=== PATIENT | female | born 1930 | race Caucasian/White ===

== ENCOUNTER 2016-10-13 10:40 | Inpatient (IN) | payer MEDICARE ==
[2016-10-13] MEDS ORDERED: Aspirin Low Dose CHEW TAB* 81 MG PO ONE (10:45)
--- NOTE | 2016-10-13 11:22 | RAD ---
HISTORY: Chest pain COMPARISONS: December 31, 2013 VIEWS:1: Single frontal portable view of the chest at 10:55 AM FINDINGS: LINES AND TUBES: None. CARDIOMEDIASTINAL SILHOUETTE: The cardiomediastinal silhouette is normal for portable technique. PLEURA: The costophrenic angles are sharp. No pleural abnormalities are noted. LUNG PARENCHYMA: There is a pleural-based nodule of the left lower lung measuring 1.3 cm in size. This is not clearly seen on the previous examination ABDOMEN: The upper abdomen is clear. There is no subphrenic gas. BONES AND SOFT TISSUES: The patient is status post internal fixation of the right femur IMPRESSION: PLEURAL-BASED NODULE OF THE LEFT LOWER LUNG. RECOMMEND FURTHER EVALUATION WITH CONTRAST-ENHANCED CT OF THE CHEST
[2016-10-13 11:47] LABS: Hematocrit 45 % (35-47); Hemoglobin 14.2 g/dl (12.0-16.0); Mean Corpuscular HGB Conc 32 g/dl (31-36); Mean Corpuscular Hemoglobin 28 pg (27-31); Mean Corpuscular Volume 88 fL (80-97); Mean Platelet Volume 10 um3 (7.4-10.4); Red Blood Count 5.12 10^6/ul (4.0-5.4); Red Cell Distribution Width 18 % (10.5-15); White Blood Count 7.9 10^3/ul (3.5-10.8)
[2016-10-13 12:00] LABS: Albumin 3.4 g/dL (3.2-5.2); BUN/Creatinine Ratio 10.1 (8-20); Calcium 9.6 mg/dL (8.6-10.3); EGFR African American 55.3 (>60); Globulin 3.8 g/dL (2-4); Potassium 3.1 mmol/L (3.5-5.0); Total Bilirubin 0.5 mg/dL (0.2-1.0); Total Protein 7.2 g/dL (6.4-8.9)
[2016-10-13 12:08] LABS: Troponin I 0.05 ng/mL (<0.04)
[2016-10-13] MEDS ORDERED: Ondansetron INJ* 2 MG/ML VIAL IV ONE (12:09)
[2016-10-13] MEDS ORDERED: Amiodarone IV VIAL* 3 ML ONE (13:05)
[2016-10-13] MEDS ORDERED: Amiodarone 360 MG IVPREMIX* 360 MG/200 ML BAG IV ONE (13:10)
[2016-10-13] MEDS ORDERED: Amiodarone 360 MG IVPREMIX* 360 MG/200 ML BAG IV SCH (13:10)
[2016-10-13] MEDS ORDERED: Amiodarone 150 MG IVPREMIX* 150 MG/100 ML BAG IV ONE (13:23)
[2016-10-13] MEDS ORDERED: KCL 20 MEQ/100 ML IVPREMIX* 20 MEQ/100 ML BAG ONE (13:32)
[2016-10-13] MEDS ORDERED: Potassium Chlor TAB* 20 MEQ TAB.ER PO ONE (13:42)
[2016-10-13] MEDS ORDERED: NS 0.9% 1000 ML* 1,000 ML IV SCH (13:45)
[2016-10-13] MEDS ORDERED: Albuterol 2.5 MG/3 ML NEB.SOL* (0.083%) INH PRN (13:51)
[2016-10-13] MEDS ORDERED: HYDROcodone/ACETAMIN 5-325 MG* 1 TAB PO PRN (13:51)
[2016-10-13 14:02] LABS: Magnesium 1.8 mg/dL (1.9-2.7)
[2016-10-13] MEDS ORDERED: Magnesium Sulfate 2 GM IV* 2 GM/50 ML BAG IVPB ONE (14:06)
[2016-10-13 14:15] LABS: T4 10.89 g/dL (6.09-12.23)
[2016-10-13 14:17] LABS: TSH (Thyroid Stimulating Horm) 10.81 mcIU/mL (0.34-5.60)
[2016-10-13 14:20] LABS: Free T3 3.4 pg/mL (2.5-3.9)
[2016-10-13 14:21] LABS: Free T4 0.98 ng/dL (0.61-1.12)
[2016-10-13 14:25] LABS: Total T3 0.84 ng/mL (0.87-1.78)
[2016-10-13] MEDS: KCL 20 MEQ/100 ML IVPREMIX* 20 MEQ/100 ML BAG IV SCH ×3 (15:22→19:32)
--- NOTE | 2016-10-13 15:31 | ECHO ---
Patient: TIFFANY MEDELLIN [facility] Rec#: [id number] : 1930 Date: 10/13/2016 Age: 85y Height: 160.02 cm / 63.0 in Weight: 58.97 kg / 130.0 lbs Sex: F BSA: 1.61 Room#: -19 Admit Date#: 10/13/2016 Type: Inpatient Referring: Tracey Haile MD Reading: Baltazar Langford MD Warehouse Material Handler: Luz Elena Pena [facility] CC: Broderick Holguin MD Transthoracic Echocardiogram Indication: CP/Abn EKG BP: 91/54 HR: 112 Rhythm: NSR with PVCs Findings History: S/P pericardial window 07/2016,CVA 8 yrs ago,HTN,HLD,remote smoker. Run of VT just prior to echo. Technical Comments: The study was technically limited due to the patient's inability to lay in the left lateral decubitus position. Completed at 1340. Left Ventricle: The left ventricular chamber size is normal. Septal wall hypertrophy is observed. Septal knuckle measured 2.3cm. Global left ventricular wall motion and contractility are within normal limits. There is normal left ventricular systolic function. The estimated ejection fraction is 60-65%. There is no consistent Doppler evidence of clinically significant diastolic dysfunction. Right Ventricle: The right ventricular cavity size is normal. The right ventricular global systolic function is normal. Right Atrium: The right atrial cavity size is normal. Aortic Valve: The aortic valve is trileaflet. There is no evidence of aortic regurgitation. There is no evidence of aortic stenosis. Mitral Valve: The mitral valve leaflets appear normal. There is moderate mitral regurgitation. There is no evidence of mitral stenosis. Tricuspid Valve: The tricuspid valve leaflets are normal. There is moderate tricuspid regurgitation. There is evidence of borderline pulmonary hypertension. There is no tricuspid stenosis. Pulmonic Valve: The pulmonic valve appears normal. There is a trace pulmonic regurgitation. There is no pulmonic stenosis. Pericardium: There is no pericardial effusion. A pericardial fat pad is visualized. Aorta: There is mild dilatation of the ascending aorta. There is mild dilatation of the aortic root. Pulmonary Artery: The main pulmonary artery appears normal. Venous: The venous system is not well visualized. Conclusions Septal wall hypertrophy is observed. Septal knuckle measured 2.3cm. Global left ventricular wall motion and contractility are within normal limits. There is normal left ventricular systolic function. The estimated ejection fraction is 60-65%. The right ventricular global systolic function is normal. There is no evidence of aortic regurgitation. There is moderate mitral regurgitation. There is moderate tricuspid regurgitation. There is evidence of borderline pulmonary hypertension. There is a trace pulmonic regurgitation. There is no pericardial effusion. There is mild dilatation of the ascending aorta. Measurements Name Value Normal Range RVIDd (AP) 2D 3 cm (0.9 - 2.6) RVDdMajor (2D) 3.6 cm (2.2 - 4.4) RAd ISD 4CH 4.6 cm (3.4 - 4.9) RA (A4C)W 3 cm (2.9 - 4.6) IVSd (2D) 0.9 cm (0.6 - 1) LVPWd (2D) 1.1 cm (0.6 - 1) LVIDd (2D) 4.5 cm (3.6 - 5.4) LVIDs (2D) 2.6 cm - LV FS (2D) 42 % (25 - 45) Aortic Annulus 2 cm (1.4 - 2.6) Ao root diameter (2D) 3.8 cm (2.1 - 3.5) Ascending Ao 3.5 cm (2.1 - 3.4) LA dimension (AP) 2D 4.1 cm (2.3 - 3.8) LAd ISD 4CH 4.8 cm (2.9 - 5.3) LA ISD 4CH W 4.4 cm (2.5 - 4.5) Name Value Normal Range LA ESV SP 4CH (A/L) 44 ml - LA ESV SP 2CH (A/L) 33 ml - LA ESV BP (A/L) 40 ml - LA ESV BP (A/L) index 24.17 ml/m2 - LA ESV SP 4CH (MOD) 41 ml - LA ESV SP 2CH (MOD) 31 ml - Name Value Normal Range MV E-wave Vmax 1.1 m/sec - MV deceleration time 125 msec - Name Value Normal Range AV Vmax 1.1 m/sec - AV VTI 18.5 cm - AV peak gradient 4.45 mmHg - AV mean gradient 1.92 mmHg - LVOT Vmax 0.8 m/sec - LVOT VTI 14.4 cm - LVOT peak gradient 2.71 mmHg - LVOT mean gradient 1.17 mmHg - Name Value Normal Range TR Vmax 2.8 m/sec - TR peak gradient 31 mmHg - RAP 8 mmHg - RVSP 39 mmHg - Name Value Normal Range PV Vmax 0.7 m/sec - PV peak gradient 1.89 mmHg -
[2016-10-13 18:53] LABS: Urine Bacteria Absent (Absent); Urine Bilirubin Negative (Negative); Urine Glucose Negative (Negative); Urine Nitrite Positive (Negative)
[2016-10-13] MEDS: Amiodarone 360 MG IVPREMIX* 360 MG/200 ML BAG IV SCH (20:06)
[2016-10-13] MEDS ORDERED: Ferrous Gluconate TAB* 324 MG TAB PO SCH ×2 (21:00→21:19)
[2016-10-13] MEDS: levETIRAcetam TAB* 500 MG PO SCH (21:22)
[2016-10-13] MEDS: Colchicine* 0.6 MG TAB PO SCH (21:22)
[2016-10-13] MEDS: Apixaban* 2.5 MG TAB PO SCH (21:22)
[2016-10-13] MEDS: Ferrous Gluconate TAB* 324 MG TAB PO SCH (21:23)
[2016-10-14 03:46] LABS: Hematocrit 37 % (35-47); Hemoglobin 11.8 g/dl (12.0-16.0); Mean Corpuscular HGB Conc 32 g/dl (31-36); Mean Corpuscular Hemoglobin 28 pg (27-31); Mean Corpuscular Volume 88 fL (80-97); Mean Platelet Volume 10 um3 (7.4-10.4); Red Blood Count 4.26 10^6/ul (4.0-5.4); Red Cell Distribution Width 17 % (10.5-15); White Blood Count 5.6 10^3/ul (3.5-10.8)
[2016-10-14 04:02] LABS: BUN/Creatinine Ratio 11.3 (8-20); Calcium 8.5 mg/dL (8.6-10.3); EGFR African American 87.5 (>60); Potassium 4.4 mmol/L (3.5-5.0)
[2016-10-14 04:21] LABS: Troponin I 0.12 ng/mL (<0.04)
[2016-10-14] MEDS: Levothyroxine TAB* 25 MCG TAB PO SCH ×2 (04:56→10:07)
--- NOTE | 2016-10-14 06:39 | HP ---
HISTORY AND PHYSICAL: DATE OF ADMISSION: 10/13/16 PRIMARY CARE PHYSICIAN: Dr. Berry. ATTENDING PHYSICIAN WHILE IN THE HOSPITAL: Ty Almaguer MD *(report dictated by Miguel Ram NP) CONSULTING THERAPY TEACHER: Dr. Langford. CHIEF COMPLAINT: 1. Chest discomfort. 2. Nausea with vomiting. 3. Irregular heartbeat. HISTORY OF PRESENT ILLNESS: Mrs. Dey is an 85-year-old female patient who comes into the ER today with an underlying history of dementia, so it is hard to get a good history from her, but she does state that she remembers having some chest discomfort today. She thinks this only lasted a minute or two. She did have some nausea and she appeared to be more short of breath according to the nursing notes. She has a history of hypertension, AFib, which she thinks is paroxysmal but her son states that to his knowledge, she goes in and out of this. She has had a cardioversion in the past. She has a history of pericardial effusion recently about 4 to 5 weeks ago as [facility] status post window, history of seizure, hyperlipidemia, anemia, CVA, history of CHF and history of breast cancer and mild dementia. She was at the skilled nursing today, was feeling a little bit more weak. She appeared to be a little more short of breath per the nursing notes. They were concerned and sent her to the hospital. It was also noted that her heart rate was irregular. The patient was evaluated in the ER. It was noted that when she came in, she appeared to be in atrial fibrillation, heart rate in the 100s, she was a little bit more hypoxic. She was requiring a couple of liters of oxygen, O2 sats were 90%. In addition to this, she was noted to be hypotensive in the 90s. Hospitalist service was asked to evaluate for admission. There was obvious concern that she may have reaccumulation of fluid, an echo was done. Fluid was not seen, but whilst getting the echo she went into V-tach with a rate of 200 and she did convert after amiodarone and because of this, we were asked to evaluate. There has been no recent documented again fever or change in medications over the last 4 weeks since being at [facility]. PAST MEDICAL HISTORY: Significant for: 1. Hypertension. 2. AFib. 3. Pericardial effusion. 4. Seizure. 5. Hyperlipidemia. 6. Anemia. 7. CHF. 8. CVA. 9. Breast cancer. 10. Dementia. PAST SURGICAL HISTORY: 1. She has had a hysterectomy. 2. Pericardial window with right-sided chest tube according to the notes. HOME MEDICATIONS: Include: 1. Fenton 1 tablet every 4 hours as needed for pain. 2. Promethazine 25 mg every 8 hours as needed for vomiting. 3. Albuterol 1 neb every 4 hours as needed for shortness of breath or wheezing. 4. Flonase 1 spray each nostril as needed for allergies. 5. Imodium every 4 hours as needed for diarrhea. 6. Pyridium 100 mg 3 times a day. 7. Keppra 500 mg p.o. twice a day. 8. Senna 1 tablet b.i.d. 9. Eliquis 2.5 mg p.o. b.i.d. 10. Ferrous gluconate 324 mg p.o. b.i.d. 11. Flonase 1 spray each nostril 2 times a day. 12. B12 IM every 14 days. 13. Colace 100 mg p.o. b.i.d. 14. Colchicine 0.6 mg by mouth 2 times a day for gout. 15. B12 at 1000 mcg p.o. daily. 16. Vitamin C 500 mg daily. 17. Vitamin D3 at 1000 units p.o. daily. 18. Pravachol 20 mg daily. 19. Senna 2 tablets at bedtime. 20. Folic acid 1 tablet p.o. daily. 21. Humira 2.5 mg daily. 22. Synthroid 25 mcg daily. 23. Magnesium 400 mg by mouth daily. ALLERGIES TO MEDICATIONS: Include no known drug allergies. FAMILY HISTORY: Mother has history of pneumonia. Father had history of CO. SOCIAL HISTORY: She lives at [facility] currently. She is a nonsmoker. Surrogate decision maker is her son. REVIEW OF SYSTEMS: There is no documented fever. She denied having any significant weight change. There was no double vision. There is no ear discharge. There is no rhinorrhea. There is no sore throat. No thyroid enlargement. She did admit to chest pain earlier today but it is now gone. She admits to having one episode of nausea with vomiting. There was a report of diarrhea. There is no abdominal pain. No recent antibiotics. No dysuria. No frequency. There is no report of loss of consciousness or seizure activity. Review of 14 systems completed, all others were negative. PHYSICAL EXAMINATION GENERAL: At this time, Ms. Dey is an 85-year-old female patient. She is sitting in the ER stretcher. She does not appear to be in any acute distress. VITAL SIGNS: Reveal blood pressure 91/54, pulse 115, respirations 18, O2 sat 95 %, temperature 98.8. Her blood pressure now is 121/70, heart rate is at 90. HEENT: Head: Atraumatic, normocephalic. Eyes: EOMs are intact. Sclerae anicteric and not pale. Throat: Oral mucosa appears to be dry. No oropharyngeal erythema. NECK: Supple. LUNGS: Clear to auscultation bilaterally. No wheezes, rales, or rhonchi. HEART: Sounds S1, S2. Irregularly irregular rate. No murmurs, rubs, or gallops. ABDOMEN: Soft, flat, nontender. Bowel sounds were present. EXTREMITIES: Pulses are 2+ throughout. She is able to move all 4 extremities with 5/5 strength. NEUROLOGIC: The patient is awake, alert, she is oriented x3 currently, but she has short-term memory problems. No gross focal deficits. She does have some weakness on the right side but that is her baseline. SKIN: Intact. LABORATORY DATA: Today revealed WBC 7.9, RBC of 5.12, hemoglobin 14.2, hematocrit 45, platelet count of 265. Sodium was 127, potassium 2.1, chloride 102, bicarb 23, BUN 12, creatinine 1.19, glucose 167, lactic 3.0, calcium 9.6, mag 1.8. Total bili 0.5, AST 20, ALT 15, alk phos 68, troponin 0.05, albumin 3.4. TSH is pending. She had an EKG obtained in the ED, which did show atrial fibrillation with couplets. No ST elevation. She had some left bundle branch block was noted as well. She had a previous EKG, again this is from 3 years ago, showed a normal sinus rhythm, no ST elevation or T-wave inversions. Her QT from 3 years ago was 451, her QT today is 371 with QTc's 518, prior was 468. She did have a chest x-ray obtained today, on my review she does appear to have what appears to be a left-sided pleural effusion. Radiology read impression: Pleural based nodule in the left lower lung. Recommend further evaluation with CT of the chest. Old medical records were reviewed. ASSESSMENT AND PLAN: Mrs. Dey is an 85-year-old female patient coming into the ER today with complaints of chest pain, nausea, weakness and on evaluation here in the ED found to be in atrial fibrillation. In addition to this, did have an episode of ventricular tachycardia. She will be admitted under inpatient status for: 1. Chest discomfort with associated ventricular tachycardia. Again, she did have one episode of chest pain lasting minutes she thinks, no more discomfort now. Her troponin is mildly elevated and she did have an episode of ventricular tachycardia. Her QTc is prolonged, which is concerning. I did review the meds with Dr. Langford. We do not see any obvious medication that may be contributing to this. Her potassium as well in addition to this her mag was a little low. The plan at this point is to cycle her troponins. She did get an echo. She is not having any discomfort now. We will continue her on amiodarone, as when she was in the V-tach, she was bolused with 300 mg of amiodarone IV and she broke into atrial fibrillation with PVC's and she is being maintained on a drip. She recently was started on amiodarone after the hospitalization at [facility], which certainly could prolong the QTc. At this point we will rule her out with troponins, try to get her potassium around 4, get the mag up around 2. I think the troponin could be elevated because of demand ischemia. I think probably what happened is she probably went into atrial fibrillation with rapid ventricular response and does not tolerate this well and that is why we are seeing the symptomatology that she was complaining of earlier, but I would like to rule out acute coronary syndrome obviously. Cardiology is following closely. May consider cardioversion tomorrow. We need to get records from [facility], [place], and also Dr. Yuan's office to get a more recent EKG as well. 2. History of reported diarrhea. Again, she recently looks like from her MAR, has been started on some colchicine just a few weeks ago, it looks like on the 01 of September, 6 weeks ago, which may be contributing but I am going to send off for stool studies and C. Diff. I do not see any recent antibiotics on her old MAR. We will send off for cultures and C. diff and we will follow. 3. Hypertension. Blood pressure now is in the 120s. We will just continue her meds as prescribed. 4. Atrial fibrillation. Again, she is rate controlled on amiodarone. She is on Eliquis. We could consider cardioversion tomorrow with Dr. Langford following. 5. Pericardial effusion. Echo by verbal report, did not see a large pericardial effusion. I will continue to follow. 6. Seizure. Seizure precautions will be ordered. We will go ahead and continue her Keppra. 7. Hyperlipidemia. Continue her medications as prescribed. 8. History of cerebrovascular accident. Continue with secondary prevention. 9. History of congestive heart failure. We will monitor her fluid status and diurese as needed. 10. Breast carcinoma. Continue meds as prescribed. 11. Dementia. Continue with supportive care. 12. Code status: She wishes to be a DNR. 13. Fluids, electrolytes, and nutrition: She can have a regular diet. TIME SPENT: Time spent on this admission was 70 minutes, greater than half the time was spent [id number] with the patient obtaining my history and physical, and the other half time was spent going over the plan of care with patient and implementing plan of care. I did discuss the plan of care with my attending, Dr. Almaguer, he is in agreement. MIGUEL RAM NP CC: Dr. Berry; Dr. Langford * [id number]/[facility] #: [id number] [facility]
[2016-10-14] MEDS: Amiodarone 360 MG IVPREMIX* 360 MG/200 ML BAG IV SCH (07:02)
[2016-10-14 09:08] LABS: Magnesium 2.1 mg/dL (1.9-2.7)
[2016-10-14] MEDS: Apixaban* 2.5 MG TAB PO SCH ×2 (09:57→20:53)
[2016-10-14] MEDS: Ferrous Gluconate TAB* 324 MG TAB PO SCH ×2 (09:58→20:53)
[2016-10-14] MEDS: Colchicine* 0.6 MG TAB PO SCH (09:58)
[2016-10-14] MEDS: CMCS: Letrozole (NF) 2.5 MG TAB PO SCH (09:59)
[2016-10-14] MEDS: levETIRAcetam TAB* 500 MG PO SCH ×2 (10:00→20:53)
[2016-10-14] MEDS ORDERED: Colchicine* 0.6 MG TAB PO PRN ×2 (11:12→11:59)
--- NOTE | 2016-10-14 11:22 | PN ---
Subjective Date of Service: 10/14/16 Interval History: This is an 85 yo female with a relatively recent onset of atrial fibrillation, mild dementia, h/o CVA with RLE weakness, sz d/o, HLD, chronic anemia, chronic diastolic HF and recent transfer to [facility] in [place] for a pericardial effusion where she underwent a pericardial window. Patient presented to the ER yesterday from [facility] with complaints of chest discomfort, n/v/d. While in the ED she went into [facility], she was converted with an amiodarone bolus and transferred to the ICU on an amiodarone drip. QTc is prolonged, only offending medication is amiodarone, which appears to have been started the end of July when her afib was recognized. Records have been received from [facility], but yet to come from [facility]. It appears patient was admitted at [facility] 08/06 for PNU and new onset afib. She was cardioverted and started on Eliquis and amiodarone. She was subsequently discharged to rehab where she spend only one day and was transported back to [facility] with tachycardia and then subsequently transferred to [facility] 08/19 when the pericardial effusion was identified. Patient is followed by Dr Yuan for primary cardiology care out of [facility]. Patient has a drain in place in the RUQ. Patient is unsure what the history is , but reports that it is occasionally drained at [facility]. [facility]'s noted only refer to a "chest tube" in place. Today, patient reports that she is feeling fairly well. Maybe slightly nauseated. But no vomiting or diarrhea since admission. She denies abdominal pain, CP, palpitations or SOB. Objective Active Medications: Acetaminophen (Tylenol Tab*) 650 mg PO Q4H PRN PRN Reason: FEVER/PAIN Acetaminophen/Hydrocodone Bitart ([place] 5-325 Tab*) 1 tab PO Q4H PRN PRN Reason: PAIN Last Admin: 10/13/16 23:05 Dose: 1 tab Albuterol (Ventolin 2.5 Mg/3 Ml Neb.Roseline*) 2.5 mg INH Q4H PRN PRN Reason: SOB/WHEEZING Apixaban (Eliquis) 2.5 mg PO BID VISHAL Last Admin: 10/14/16 09:57 Dose: 2.5 mg Colchicine (Colcrys*) 0.6 mg PO BID PRN PRN Reason: gouty pain Ferrous Gluconate (Fergon Tab*) 324 mg PO 0900,2100 [facility] Last Admin: 10/14/16 09:58 Dose: 324 mg Sodium Chloride (Ns 0.9% 1000 Ml*) 1,000 mls @ 75 mls/hr IV PER RATE [facility] Last Admin: 10/14/16 03:23 Dose: 75 mls/hr Ceftriaxone Sodium 1,000 mg/ (Sodium Chloride) 50 mls @ 200 mls/hr IVPB Q24H [facility] Letrozole (Femara (Nf)) 2.5 mg PO DAILY [facility] PRN Reason: Protocol Last Admin: 10/14/16 09:59 Dose: 2.5 mg Levetiracetam (Keppra Tab*) 500 mg PO BID [facility] Last Admin: 10/14/16 10:00 Dose: 500 mg Levothyroxine Sodium (Synthroid Tab*) 25 mcg PO DAILY@0600 [facility] Last Admin: 10/14/16 10:07 Dose: 25 mcg Vital Signs: Temp Pulse Resp BP Pulse Ox 97.6 F 73 14 107/62 99 10/14/16 11:16 10/14/16 11:00 10/14/16 11:00 10/14/16 10:00 10/14/16 11:00 Appearance: Well appearing elderly female who is presently demented in NAD Respiratory: Symmetrical Chest Expansion and Respiratory Effort, Clear to Auscultation Cardiovascular: NL Sounds; No Murmurs; No JVD, RRR Abdominal: NL Sounds; No Tenderness; No Distention, - - drain that appears to be a pigtail catheter in the RUQ with dressing in place, no active drainage noted Extremities: No Edema Skin: No Rash or Ulcers Neurological: - - alert and appropriate in conversation, but obviously confused Result Diagrams: 10/14/16 03:25 10/14/16 03:25 Microbiology and Other Data: Microbiology 10/13/16 18:40 Urine Culture - Preliminary Urine Klebsiella Pneumoniae 10/13/16 14:05 Nasal Screen MRSA (PCR)(CANELO) - Final Nasal Mrsa Negative 10/13/16 14:05 Influenza Types A,B Antigen (CANELO) - Final Nasal Specimen received for Influenza A/B Molecular testing Diagnostic Imaging: Echo - no effusion, septal hypertrophy, but nl LVEF CXR - NAD, pleural based nodule in LLL EKG Data: Initial - afib, rate ~100, QTc 513 ms Oct 14 - sinus, 1st deg block, QTc 553 ms Assess/Plan/Problems-Billing Assessment: This is an 85 yo female with atrial fibrillation anticoagulated on Eliquis and maintained on amiodarone as well as mild dementia, h/o CVA with LLE weakness, recent percardial effusion s/p percardial window at [facility] beginning of Aug, seizure d/o, chronic diastolic HF, h/o BCA, HLD, HTN and chronic anemia who presented with complaints of n/v/d and chest pressure who experienced sustained Vtach in the ER and was converted with amiodarone bolus. - Patient Problems (1) V-tach Comment: Patient has been asymptomatic overnight, no additional dysrhythmias QTc prolonged, only offending medication is amiodarone, requested comparison EKG from her preassembler and inspector Will stop amiodarone drip at this time and hold additional oral amiodarone, initiate low dose BB Repeat Mg nl at 2.1 after 2g bolus yesterday Cardiology consult by Dr Langford is greatly appreciated (2) Pericardial effusion Comment: s/p pericardial window at [facility] in [place] by Dr Casiano d/c'd with a R pleurx catheter for a recurrent R sided pleural effusion that developed after the pericardial window with instructions to drain every other day and planned follow up with Dr Casiano (3) pleural drain in place Comment: RUQ drain appears to be a pleurx drain placed at [facility] with instructions to drain every other day at discharge. Patient has instructions to follow up with surgeon Dr Casiano 2 weeks from discharge and it has now been 6, unclear if that follow up took place, will plan to call Dr Casiano today to discuss (4) UTI (urinary tract infection) Comment: Urine growing >100k Klebsiella, sensitivities pending This is the likely cause of her initial complaints of n/v Will empirically start Ceftriaxone while sensitivities are pending (5) Atrial fibrillation Comment: Anticoagulated with Eliquis and maintained on amiodarone, notes from [facility] suggest she was hypotensive with Lopressor Amiodarone drip will be discontinued at this time, ?whether it is contributing to her prolonged QTc and proarrythmic state Will see if she can tolerate a low dose BB (6) Hyperlipidemia (7) Seizure disorder Comment: Cont Keppra No seizure activity noted (8) Chronic diastolic heart failure Comment: No acute exacerbation (9) Chronic anemia Comment: Normocytic Likely of chronic disease Hgb appears nears baseline (10) Lung nodule Comment: Required follow-up chest CT (11) Mild dementia Comment: Pleasant, no behavioral concerns (12) History of breast cancer Status and Disposition: Continue ICU level care. Amiodarone drip discontinued at this time. Will follow QTc. Possibly appropriate for transfer to telemetry floor tomorrow. Pending conversation with surgeon at [facility], Dr Casiano
--- NOTE | 2016-10-14 12:25 | CONS ---
DICTATION ENDS ABRUPTLY CARDIOLOGY CONSULT REPORT: DATE OF CONSULT: 10/13/16 INDICATION FOR CONSULT: Atrial fibrillation, ventricular tachycardia. HISTORY OF PRESENT ILLNESS: The patient is an 85-year-old female with a recent history of pericardial effusion and pericardial window done in [facility] in [place] in early August of 2016. The patient was brought to the emergency room by her son from the assisted because of episodes of chest discomfort and rapid heartbeat. On arrival to the emergency room, she was found to be in atrial fibrillation with frequent PVCs. The patient's heart rate was 115 beats per minute and irregular, her blood pressure was 90/50, an emergency echocardiogram was called to evaluate for pericardial effusion. On arrival of our registered diet technician, the patient had a prolonged episode of ventricular tachycardia; it was 30 seconds in duration. DICTATION ENDS ABRUPTLY CC: Darien Ram NP; Jaime Smith* [id number]/[facility] #: [id number] MTDTammy
[2016-10-14] MEDS: cefTRIAXone VIAL(*) 1,000 MG in NS 0.9% 50 ML* 50 ML IVPB SCH (12:31)
--- NOTE | 2016-10-14 12:41 | CONS ---
CC: Dr. Berry; Dr. Maximus Yuan, Car Record Clerk, [place], [place] CONSULTATION REPORT: DATE OF CONSULT: 10/13/16 INDICATION FOR CONSULT: Atrial fibrillation, ventricular tachycardia. HISTORY OF PRESENT ILLNESS: The patient is an 85-year-old female, who was admitted to [facility] Emergency Room with a rapid heartbeat and low blood pressure. The patient is a resident of a retirement and was noted to have a high heart rate and low blood pressure. She was also having some atypical chest pain. On arrival to the emergency room, she was in atrial fibrillation with a h eart rate of 115 and a blood pressure of 90. The patient does have a history of pericardial effusion. She was admitted to the hospital in [facility] er to [facility]. At that time, an echocardiogram showed a pericardial effusion. She was tr ansferred to [facility] in [place] at which time she underwent a pericardial drainage. It is unclear what kind of procedure she had at that time, whether she had a pericardial window. Th e patient does have an external drain in her abdomen. It is unclear if that is connected to her per icardium. Regardless a stat echocardiogram was called to rule out pericardial effusion as a cause f or rapid heart rate and low blood pressure. On arrival of our service center technician, the patient had a 30-secon d run of monomorphic ventricular tachycardia and a code situation was called on my arrival. The pat ient was back in atrial fibrillation with a heart rate of 110. The patient was awake and alert. He r vital signs were stable. The patient was given amiodarone 150 mg IV for her arrhythmia. An echoc ardiogram was done which demonstrated normal LV size and systolic function, no significant valvular abnormality, no evidence of pericardial effusion. The patient was admitted to the hospital for furt her evaluation. The patient does have underlying dementia, so history was difficult to obtain from the patient. Overnight, the patient was quite stable. Actually, the patient converted to normal sinus rhythm ove rnight. Her EKG this morning demonstrates normal sinus rhythm. Her QT interval is prolonged at 560 milliseconds. She had no significant arrhythmias overnight. The patient is a resident of [facility]. PAST MEDICAL HISTORY: Significant for hypertension, paroxysmal atrial fibrillation, pericardial eff usion, seizures, hyperlipidemia, diastolic congestive heart failure, breast cancer, dementia. PAST SURGICAL HISTORY: Hysterectomy, pericardial window placement. OUTPATIENT MEDICATIONS: 1. Flonase nasal spray. 2. Imodium p.r.n. 3. Pyridium 100 mg 3 times a day. 4. Keppra 500 mg b.i.d. 5. Eliquis 2.5 mg b.i.d. 6. Colace 100 mg b.i.d. 7. Colchicine 0.6 mg 2 tabs a day. 8. Multiple vitamins. 9. Pravachol 20 mg a day. 10. Humira 2.5 mg a day. 11. Synthroid 25 mcg a day. 12. Magnesium 400 mg daily. 13. Folic acid 1 mg a day. ALLERGIES: No known drug allergies. FAMILY HISTORY: Not obtained. SOCIAL HISTORY: She is currently at [facility]. She is a nonsmoker. She does have underlying de mentia. Her son is the decision maker. REVIEW OF SYSTEMS: Difficult to obtain because of her dementia. PHYSICAL EXAM: Height is 5 feet 3 inches, weight is 151 pounds. Heart rate is currently 74 this mo rning, heart rate yesterday was 100; blood pressure 126/66; respiratory rate is 16; oxygen saturatio n 98% on 2 L. Sclerae anicteric. Oropharynx is pink without erythema. Carotids are 2+ without brui ts. JVD is normal. Thyroid is normal. Cardiac Exam: S1, S2 without any murmurs, rubs, or gallops . PMI is normal. Lungs are clear to auscultation bilateral. There is no dullness to percussion. Abdomen is soft, nontender, nondistended with normoactive bowel sounds. There is no significant ten derness around her percutaneous drain. There is no hepatosplenomegaly. Extremities show no edema. She has 2+ pulses throughout. The patient is awake and alert but is not oriented, unable to give ad equate history. DIAGNOSTIC STUDIES/LAB DATA: CBC within normal limits. Chemistries within normal limits. BUN 9, c reatinine 0.8. Her potassium level in the emergency room was 3.1, it is 4.4 this morning. Troponin levels initially 0.07, peak at 0.13. Again EKG this morning demonstrates normal sinus rhythm with a QTc interval of 560 milliseconds, her QRS duration is 74 milliseconds, incomplete right bundle branch block. IMPRESSION: This is an 85-year-old female who is admitted to the hospital because of rapid heartbea t and hypotension. There is some concern about pericardial effusion as she had a history of pericar dial drainage back in July. An urgent echocardiogram showed no evidence of pericardial effusion and no evidence of tamponade. The patient did have a prolonged episode of ventricular tachycardia in the emergency room of unclear origin or significance. The patient is on chronic amiodarone as an outpatient and the question is whether the amiodarone was proarrhythmic in this patient. Currently, the patient is back in normal sinus rhythm. At this point, she has normal LV function. I think the recommendation will be to observe the patient again tonight and see what her EKG is in t he morning. If her QT interval is down to around 520, then I will continue her amiodarone. If she continues to have a markedly prolonged QT interval, then her amiodarone will need to be stopped and perhaps another antiarrhythmic is necessary. The other cause for ventricular tachycardia could be ischemic in origin. However, at this point, I am not sure the family wants to proceed with an ischemic workup given her DNR status. Further recom mendations pending her EKG in the morning. [id number]/[facility] #: [id number]
[2016-10-14] MEDS: Metoprolol Tartrate TAB* 25 MG PO SCH (20:53)
[2016-10-14] MEDS ORDERED: Colchicine* 0.6 MG TAB PO SCH (21:00)
[2016-10-15] MEDS: Levothyroxine TAB* 25 MCG TAB PO SCH (06:06)
[2016-10-15] MEDS ORDERED: Magnesium Sulfate 2 GM IV* 2 GM/50 ML BAG IVPB ONE (07:37)
[2016-10-15] MEDS: Ferrous Gluconate TAB* 324 MG TAB PO SCH ×2 (08:03→21:17)
[2016-10-15] MEDS: Apixaban* 2.5 MG TAB PO SCH (08:03)
[2016-10-15] MEDS: CMCS: Letrozole (NF) 2.5 MG TAB PO SCH (08:04)
[2016-10-15] MEDS: levETIRAcetam TAB* 500 MG PO SCH ×2 (08:04→21:17)
[2016-10-15] MEDS: Metoprolol Tartrate TAB* 25 MG PO SCH ×2 (08:04→21:18)
[2016-10-15 09:17] LABS: Magnesium 1.7 mg/dL (1.9-2.7)
--- NOTE | 2016-10-15 09:25 | PN ---
Subjective Date of Service: 10/15/16 Interval History: Patient reports some nasal congestion this am. She is blowing her nose frequently. Denies cough, SOB, or CP. No n/v/d. She had a formed stool yesterday. No dysrhythmias overnight. Objective Active Medications: Acetaminophen (Tylenol Tab*) 650 mg PO Q4H PRN PRN Reason: FEVER/PAIN Acetaminophen/Hydrocodone Bitart ([place] 5-325 Tab*) 1 tab PO Q4H PRN PRN Reason: PAIN Last Admin: 10/13/16 23:05 Dose: 1 tab Albuterol (Ventolin 2.5 Mg/3 Ml Neb.Roseline*) 2.5 mg INH Q4H PRN PRN Reason: SOB/WHEEZING Apixaban (Eliquis) 2.5 mg PO BID [facility] Last Admin: 10/15/16 08:03 Dose: 2.5 mg Colchicine (Colcrys*) 0.6 mg PO BID PRN PRN Reason: gouty pain Ferrous Gluconate (Fergon Tab*) 324 mg PO 0900,2100 [facility] Last Admin: 10/15/16 08:03 Dose: 324 mg Sodium Chloride (Ns 0.9% 1000 Ml*) 1,000 mls @ 75 mls/hr IV PER RATE [facility] Last Admin: 10/14/16 03:23 Dose: 75 mls/hr Ceftriaxone Sodium 1,000 mg/ (Sodium Chloride) 50 mls @ 200 mls/hr IVPB Q24H [facility] Last Admin: 10/14/16 12:31 Dose: 200 mls/hr Letrozole (Femara (Nf)) 2.5 mg PO DAILY [facility] PRN Reason: Protocol Last Admin: 10/15/16 08:04 Dose: 2.5 mg Levetiracetam (Keppra Tab*) 500 mg PO BID [facility] Last Admin: 10/15/16 08:04 Dose: 500 mg Levothyroxine Sodium (Synthroid Tab*) 25 mcg PO DAILY@0600 [facility] Last Admin: 10/15/16 06:06 Dose: 25 mcg Metoprolol Tartrate (Lopressor Tab*) 12.5 mg PO Q12HR [facility] Last Admin: 10/15/16 08:04 Dose: 12.5 mg Vital Signs: Temp Pulse Resp BP Pulse Ox 98.6 F 85 14 105/63 88 10/15/16 04:03 10/15/16 08:03 10/15/16 08:03 10/15/16 08:03 10/15/16 08:03 Appearance: Well appearing elderly female in NAD Neck: NL Appearance and Movements; NL JVP Respiratory: Symmetrical Chest Expansion and Respiratory Effort, Clear to Auscultation Cardiovascular: RRR, - - murmur 3/6 best heard at LSB Abdominal: NL Sounds; No Tenderness; No Distention Extremities: No Edema Skin: No Rash or Ulcers Neurological: - - alert, mildly confused but appropriate Result Diagrams: 10/14/16 03:25 10/15/16 06:35 Microbiology and Other Data: Microbiology 10/13/16 18:40 Urine Culture - Preliminary Urine Klebsiella Pneumoniae 10/13/16 14:05 Nasal Screen MRSA (PCR)(CANELO) - Final Nasal Mrsa Negative 10/13/16 14:05 Influenza Types A,B Antigen (CANELO) - Final Nasal Specimen received for Influenza A/B Molecular testing Diagnostic Imaging: Echo - no effusion, septal hypertrophy, but nl LVEF CXR - NAD, pleural based nodule in LLL EKG Data: Initial - afib, rate ~100, QTc 513 ms Oct 14 - sinus, 1st deg block, QTc 553 ms Assess/Plan/Problems-Billing Assessment: This is an 85 yo female with atrial fibrillation anticoagulated on Eliquis and maintained on amiodarone as well as mild dementia, h/o CVA with LLE weakness, recent percardial effusion s/p percardial window at [facility]' beginning of Aug, seizure d/o, chronic diastolic HF, h/o BCA, HLD, HTN and chronic anemia who presented with complaints of n/v/d and chest pressure who experienced sustained Vtach in the ER and was converted with amiodarone bolus. - Patient Problems (1) V-tach Comment: Patient has been asymptomatic since admission, no additional dysrhythmias overnight QTc prolonged and continues to grow to 596ms this am, only offending medication is amiodarone, but will review all medications with pharmacy Amiodarone drip stopped yesterday, oral amiodarone is being held Initiated metoprolol 12.5 mg bid Gave additional 2g Mg Will repeat EKG again this afternoon Cardiology consult is greatly appreciated, considering further ischemia workup (2) Pericardial effusion Comment: s/p pericardial window at [facility] in [place] by Dr Casiano Discharged with a R pleurx catheter for a recurrent R sided pleural effusion that developed after the pericardial window with instructions to drain every other day Discussed drain instructions with [employer] working with Dr Casiano yesterday, she stated the drain could be pulled if drainage has been <30ml for 3 consecutive times Reviewed drainage documentation from [facility], she has met criteria for ~[address] Gale asking him if his service could please remove her drain during her hospital stay, he will plan to this Thu/ - will interrupt her Eliquis therapy until after catheter removed Requested cell counts, fluid protein, LDH and repeat cytology be performed on pleural fluids (3) Hypothyroidism Comment: TSH elevated, but low normal free T4 and total T3 Unsure of when levothyroxine was initiated Recommend repeating TSH in 4 weeks Continue current dose of levothyroxine (4) UTI (urinary tract infection) Comment: Urine growing >100k Klebsiella, sensitivities pending This is the likely cause of her initial complaints of n/v Will empirically start Ceftriaxone while sensitivities are pending (5) Atrial fibrillation Comment: Anticoagulated with Eliquis and maintained on amiodarone, notes from [facility] suggest she was hypotensive with Lopressor Amiodarone drip was discontinued yesterday Low dose metoprolol tartrate was initiated and she appears to be tolerating that well (6) Hyperlipidemia (7) Seizure disorder Comment: Cont Keppra No seizure activity noted (8) Chronic diastolic heart failure Comment: No acute exacerbation (9) Chronic anemia Comment: Normocytic Likely of chronic disease Hgb appears nears baseline (10) Lung nodule Comment: Requires follow-up chest CT as an outpatient (11) Mild dementia Comment: Pleasant, no behavioral concerns (12) History of breast cancer Status and Disposition: Patient is appropriate for telemetry floor. Repeat EKG this afternoon. Anticipate LOS an additional 1-2 days.
[2016-10-15 10:23] LABS: C Reactive Protein 3.87 mg/L (< 5.00)
[2016-10-15] MEDS: cefTRIAXone VIAL(*) 1,000 MG in NS 0.9% 50 ML* 50 ML IVPB SCH (13:47)
--- NOTE | 2016-10-15 17:11 | PN ---
Subjective Date of Service: 10/15/16 - CC: elevated heart rate. Interval History: The patient is w/o complaint now. No SOB, no CP, never had awareness of palpitations. Additional history, took an antacid last week X 1, otherwise no new/changed medications. Medications Active Medications: Acetaminophen (Tylenol Tab*) 650 mg PO Q4H PRN PRN Reason: FEVER/PAIN Acetaminophen/Hydrocodone Bitart ([place] 5-325 Tab*) 1 tab PO Q4H PRN PRN Reason: PAIN Last Admin: 10/13/16 23:05 Dose: 1 tab Albuterol (Ventolin 2.5 Mg/3 Ml Neb.Roseline*) 2.5 mg INH Q4H PRN PRN Reason: SOB/WHEEZING Colchicine (Colcrys*) 0.6 mg PO BID PRN PRN Reason: gouty pain Ferrous Gluconate (Fergon Tab*) 324 mg PO 0900,2100 [facility] Last Admin: 10/15/16 08:03 Dose: 324 mg Sodium Chloride (Ns 0.9% 1000 Ml*) 1,000 mls @ 75 mls/hr IV PER RATE [facility] Last Admin: 10/14/16 03:23 Dose: 75 mls/hr Ceftriaxone Sodium 1,000 mg/ (Sodium Chloride) 50 mls @ 200 mls/hr IVPB Q24H [facility] Last Admin: 10/15/16 13:47 Dose: 200 mls/hr Letrozole (Femara (Nf)) 2.5 mg PO DAILY [facility] PRN Reason: Protocol Last Admin: 10/15/16 08:04 Dose: 2.5 mg Levetiracetam (Keppra Tab*) 500 mg PO BID [facility] Last Admin: 10/15/16 08:04 Dose: 500 mg Levothyroxine Sodium (Synthroid Tab*) 25 mcg PO DAILY@0600 [facility] Last Admin: 10/15/16 06:06 Dose: 25 mcg Metoprolol Tartrate (Lopressor Tab*) 12.5 mg PO Q12HR [facility] Last Admin: 10/15/16 08:04 Dose: 12.5 mg Objective Vital Signs: Temp Pulse Resp BP Pulse Ox 98.9 F 68 16 115/65 96 10/15/16 10:29 10/15/16 10:29 10/15/16 10:33 10/15/16 10:29 10/15/16 10:29 Oxygen Devices in Use Now: None Appearance: elderly female, lying in bed at 40 degrees, comfortable. Eyes: PERRLA Ears/Nose/Mouth/Throat: Clear Oropharnyx, Mucous Membranes Moist Neck: NL Appearance and Movements; NL JVP Respiratory: Clear to Auscultation Cardiovascular: RRR Abdominal: No Hepatosplenomegaly Extremities: No Edema - R leg unable to move for me. Neurological: - - vague, moth exterminator memory appears good. R sided hemiparasis. Follows comands well. Laboratory Results: 10/14/16 03:25 10/15/16 08:30 Total Bilirubin 0.50 mg/dL (0.2-1.0) 10/13/16 11:32 AST 28 U/L (13-39) 10/13/16 11:32 ALT 15 U/L (7-52) 10/13/16 11:32 Alkaline Phosphatase 68 U/L (34-104) 10/13/16 11:32 Total Protein 7.2 g/dL (6.4-8.9) 10/13/16 11:32 Albumin 3.4 g/dL (3.2-5.2) 10/13/16 11:32 Globulin 3.8 g/dL (2-4) 10/13/16 11:32 Albumin/Globulin Ratio 0.9 (1-3) L 10/13/16 11:32 TSH 10.81 mcIU/mL (0.34-5.60) H 10/13/16 11:32 10/13/16 10/13/16 10/13/16 13:50 16:30 20:00 Troponin I 0.07 H* 0.11 H* 0.13 H* 10/14/16 10/14/16 03:25 10:16 Troponin I 0.12 H* 0.08 H* Diagnostic Imaging: Echo: EF 60%, no recurrence of pericardial effusion. EKG Data: Sinus rhythm, first degree AV block less pronounced and QT interval lower, improved off amiodarone. Monitor: NSR, 1st degree AVB, PVC's, PAC's, blocked PAC's, run of slow VT, AV dissociation noted. Assessment/Plan 85 yo female admitted from [facility] due to staff noting rapid pulse and low BP. Found in afib and paroxysmal VT, fast (ER strips uncalibrated, can't be more specific) and patient became unresponsive with the VT. On admission hypokalemia, hypomagnisemia, elevated troponins, mildly abnormal TFT's. 2 months ago the patient underwent a pericardial window for effusion, possibly related to pneumonia, started on amiodarone for afib, zithromax and on syntheroid of uncertain duration. Points of Discussion: VT: Etiology uncertain. Differential of CAD, low K+ and Mag++, and/or reversable long QT, ? amiodarone related. -stay off amiodarone for now -Increase metoprolol dose. -Continue electrolyte replacement. -Stress test an option to rule in or out CAD. -Continue to avoid QT prolonging medications. P afib: In NSR rhythm now, await stress results prior to initiation of an agent other than pure beta humberto. Uncertain if moth exterminator contraindication for anticoagulation 8 weeks post tap and pleurex catheter (pleural effusion). Resume Eliquis if able. Troponin bump: Stress as above. K+ Mag++ low: ? why, work up and continue with repletion. Pericardial/pleural effusions: Continue colcrys.
[2016-10-15] MEDS: Acetaminophen TAB* 325 MG PO PRN (19:25)
[2016-10-16] MEDS: Acetaminophen TAB* 325 MG PO PRN ×2 (02:58→23:00)
[2016-10-16] MEDS: Levothyroxine TAB* 25 MCG TAB PO SCH (05:38)
[2016-10-16 06:15] LABS: BUN/Creatinine Ratio 11.4 (8-20); Potassium 3.7 mmol/L (3.5-5.0)
[2016-10-16 06:16] LABS: Calcium 8.5 mg/dL (8.6-10.3); EGFR African American 88.7 (>60); Magnesium 2.1 mg/dL (1.9-2.7)
[2016-10-16] MEDS ORDERED: Regadenoson* 0.4 MG/5 ML SYRINGE ONE (11:15)
--- NOTE | 2016-10-16 13:41 | RAD ---
HISTORY: Left-sided weakness, ventricular tachycardia COMPARISONS: None TECHNIQUE: A 1 day stress/rest myocardial perfusion study was performed, with pharmacologic stress. The stress portion was monitored by Dr. Latif. Gated SPECT imaging was performed, with CT-based attenuation correction DOSE: Stress: Technetium 99m tetrofosmin, 25.79 millicuries, injected at 11:46 AM on October 16, 2016 Rest: Technetium 99m tetrofosmin, 10.83 millicuries, injected at 9:00 AM on October 16, 2016 Pharmacologic agent: Lexiscan FINDINGS: CARDIAC MONITORING: No EKG changes of ischemia with stress EF: 78 % TID: 0.97 MOTION: Normal motion, with normal wall thickening. PERFUSION: There is a small fixed defect along the lateral wall without reversible perfusion defects OTHER: None IMPRESSION: SMALL FIXED DEFECT OF THE LATERAL WALL ASSESSMENT: LOW RISK. Based on imaging criteria from ACC/AHA 2002. Guideline Update for the Management of Patient's with Chronic Stable Angina, table 23. Noninvasive Risk Stratification.
[2016-10-16] MEDS: cefTRIAXone VIAL(*) 1,000 MG in NS 0.9% 50 ML* 50 ML IVPB SCH (13:42)
[2016-10-16] MEDS: Ferrous Gluconate TAB* 324 MG TAB PO SCH ×2 (13:43→20:51)
[2016-10-16] MEDS: Metoprolol Tartrate TAB* 25 MG PO SCH ×2 (13:43→20:52)
[2016-10-16] MEDS: levETIRAcetam TAB* 500 MG PO SCH ×2 (13:43→20:51)
[2016-10-16] MEDS: CMCS: Letrozole (NF) 2.5 MG TAB PO SCH (13:43)
--- NOTE | 2016-10-16 16:23 | PN ---
Subjective Date of Service: 10/16/16 Interval History: Patient offers no acute complaints today. She has no CP, palp, SOB. No abdominal pain, n/v. Her appetite seems to have improved. She underwent stress testing today. Objective Active Medications: Acetaminophen (Tylenol Tab*) 650 mg PO Q4H PRN PRN Reason: FEVER/PAIN Last Admin: 10/16/16 02:58 Dose: 650 mg Acetaminophen/Hydrocodone Bitart ([place] 5-325 Tab*) 1 tab PO Q4H PRN PRN Reason: PAIN Last Admin: 10/13/16 23:05 Dose: 1 tab Albuterol (Ventolin 2.5 Mg/3 Ml Neb.Roselnie*) 2.5 mg INH Q4H PRN PRN Reason: SOB/WHEEZING Colchicine (Colcrys*) 0.6 mg PO BID PRN PRN Reason: gouty pain Ferrous Gluconate (Fergon Tab*) 324 mg PO 0900,2100 [facility] Last Admin: 10/16/16 13:43 Dose: 324 mg Sodium Chloride (Ns 0.9% 1000 Ml*) 1,000 mls @ 75 mls/hr IV PER RATE [facility] Last Admin: 10/14/16 03:23 Dose: 75 mls/hr Ceftriaxone Sodium 1,000 mg/ (Sodium Chloride) 50 mls @ 200 mls/hr IVPB Q24H [facility] Last Admin: 10/16/16 13:42 Dose: 200 mls/hr Letrozole (Femara (Nf)) 2.5 mg PO DAILY [facility] PRN Reason: Protocol Last Admin: 10/16/16 13:43 Dose: 2.5 mg Levetiracetam (Keppra Tab*) 500 mg PO BID [facility] Last Admin: 10/16/16 13:43 Dose: 500 mg Levothyroxine Sodium (Synthroid Tab*) 25 mcg PO DAILY@0600 [facility] Last Admin: 10/16/16 05:38 Dose: 25 mcg Magnesium Oxide (Magox 400 Tab*) 400 mg PO DAILY [facility] Metoprolol Tartrate (Lopressor Tab*) 12.5 mg PO Q12HR [facility] Last Admin: 10/16/16 13:43 Dose: 12.5 mg Vital Signs: Temp Pulse Resp BP Pulse Ox 97.3 F 86 17 120/70 97 10/16/16 14:59 10/16/16 14:59 10/16/16 14:59 10/16/16 14:59 10/16/16 14:59 Oxygen Devices in Use Now: None Appearance: Well appearing elderly female in NAD. Respiratory: Symmetrical Chest Expansion and Respiratory Effort, Clear to Auscultation Cardiovascular: NL Sounds; No Murmurs; No JVD, RRR Abdominal: NL Sounds; No Tenderness; No Distention Extremities: No Edema Skin: No Rash or Ulcers Neurological: - - alert, mildly confused, pleasant in conversation Result Diagrams: 10/14/16 03:25 10/16/16 05:07 Microbiology and Other Data: Microbiology 10/13/16 18:40 Urine Culture - Preliminary Urine Klebsiella Pneumoniae 10/13/16 14:05 Nasal Screen MRSA (PCR)(CANELO) - Final Nasal Mrsa Negative 10/13/16 14:05 Influenza Types A,B Antigen (CANELO) - Final Nasal Specimen received for Influenza A/B Molecular testing Diagnostic Imaging: Echo - no effusion, septal hypertrophy, but nl LVEF CXR - NAD, pleural based nodule in LLL Lexiscan - small fixed defect in lateral wall, no reversible ischemia EKG Data: Initial - afib, rate ~100, QTc 513 ms Oct 14 - sinus, 1st deg block, QTc 553 ms Assess/Plan/Problems-Billing Assessment: This is an 85 yo female with atrial fibrillation anticoagulated on Eliquis and maintained on amiodarone as well as mild dementia, h/o CVA with LLE weakness, recent percardial effusion s/p percardial window at [facility] beginning of Aug, seizure d/o, chronic diastolic HF, h/o BCA, HLD, HTN and chronic anemia who presented with complaints of n/v/d and chest pressure who experienced sustained Vtach in the ER and was converted with amiodarone bolus. - Patient Problems (1) V-tach Comment: Noted QT prolongation on admission and maximum length was 596 ms Patient has been asymptomatic since admission, some ectopy noted yesterday, but none today QTc improved to 535ms today After thorough medication review with pharmacy only offending medication identified has been amiodarone Amiodarone has been discontinued Initiated metoprolol 12.5 mg bid Mg has been replaced appropriately Negative ischemia work-up, small fixed defect noted on nuclear stress test, but nothing reversible and no dysrhythmias induced during test (2) Pericardial effusion Comment: s/p pericardial window at [facility] in [place] by Dr Casiano Discharged with a R pleurx catheter for a recurrent R sided pleural effusion that developed after the pericardial window with instructions to drain every other day Discussed drain instructions with [employer] MAN working with Dr Casiano, she stated the drain could be pulled if drainage has been <30ml for 3 consecutive times Reviewed drainage documentation from [facility], she has met criteria for ~[address] Gale asking him if his service could please remove her drain during her hospital stay, he will plan to this 10/17 - will interrupt her Eliquis therapy until after catheter removed Requested cell counts, fluid protein, LDH and repeat cytology be performed on pleural fluids (3) Hypothyroidism Comment: TSH elevated, but low normal free T4 and total T3 Unsure of when levothyroxine was initiated Recommend repeating TSH in 4 weeks Continue current dose of levothyroxine (4) UTI (urinary tract infection) Comment: Urine growing >100k Klebsiella, sensitivities pending This is the likely cause of her initial complaints of n/v Continue Ceftriaxone, recommend treating for a total of 5 days, can be converted to oral abx at discharge (5) Atrial fibrillation Comment: Anticoagulated with Eliquis and maintained on amiodarone, notes from [facility] suggest she was hypotensive with Lopressor Amiodarone drip has been discontinued Low dose metoprolol tartrate was initiated and she appears to be tolerating that well (6) Hyperlipidemia (7) Seizure disorder Comment: Cont Keppra No seizure activity noted (8) Chronic diastolic heart failure Comment: No acute exacerbation (9) Chronic anemia Comment: Normocytic Likely of chronic disease Hgb appears nears baseline (10) Lung nodule Comment: Requires follow-up chest CT as an outpatient (11) Mild dementia Comment: Pleasant, no behavioral concerns (12) History of breast cancer Status and Disposition: Anticipate discharge tomorrow. Will repeat EKG again in the am, and pleurx catheter will be removed prior to her leaving. She will going to [facility] [place] in [place] for STR.
[2016-10-16] MEDS: Magnesium Oxide TAB* 400 MG PO SCH (17:23)
[2016-10-17] MEDS: Levothyroxine TAB* 25 MCG TAB PO SCH (05:13)
[2016-10-17 05:56] LABS: BUN/Creatinine Ratio 11.6 (8-20); Calcium 8.6 mg/dL (8.6-10.3); EGFR African American 103.7 (>60); EGFR Non-African American 80.7 (>60); Magnesium 1.9 mg/dL (1.9-2.7); Potassium 3.7 mmol/L (3.5-5.0)
[2016-10-17] MEDS: Magnesium Oxide TAB* 400 MG PO SCH (09:00)
[2016-10-17] MEDS: CMCS: Letrozole (NF) 2.5 MG TAB PO SCH (09:00)
[2016-10-17] MEDS: levETIRAcetam TAB* 500 MG PO SCH (09:00)
[2016-10-17] MEDS: Ferrous Gluconate TAB* 324 MG TAB PO SCH (09:00)
[2016-10-17] MEDS: Metoprolol Tartrate TAB* 25 MG PO SCH (09:00)
[2016-10-17] MEDS ORDERED: Morphine INJ* 2 MG/ML 1 ML CARPUJECT IV PRN (11:45)
[2016-10-17] MEDS: cefTRIAXone VIAL(*) 1,000 MG in NS 0.9% 50 ML* 50 ML IVPB SCH (12:42)
[2016-10-17 13:29] VITALS: BP 104/61
--- NOTE | 2016-10-17 14:17 | DS ---
AMENDED REPORT NOW INCLUDES COSIGNER - ESIGNED BEFORE ADJUSTMENT DISCHARGE SUMMARY: DATE OF ADMISSION: 10/13/16 DATE OF DISCHARGE: 10/17/16 PRIMARY CARE PROVIDER: Dr. Broderick Holguin. PRIMARY RAILROAD WATCHMAN: Dr. Yuan. CONSULTING RAILROAD WATCHMAN: Dr. Langford and Dr. Walker. DISCHARGING PROVIDER: KAYLIN Perez. SUPERVISING PHYSICIAN: Dr. Talita Gamino.* (DICTATED BY KAYLIN PEREZ) PRIMARY DISCHARGE DIAGNOSES: 1. V-tach with prolonged QTc. 2. Urinary tract infection. SECONDARY DISCHARGE DIAGNOSES: 1. Paroxysmal atrial fibrillation. 2. History of pericardial effusion, status post pericardial window. 3. History of recurrent right-sided pleural effusion with PleurX catheter removed during this admission. 4. Seizure disorder. 5. Hypertension. 6. Mild to moderate dementia. 7. Chronic anemia. 8. History of breast cancer. 9. History of diastolic heart failure without acute exacerbation. 10. Hypothyroidism with elevated TSH - please recheck TSH in 4 to 6 weeks. 11. Pleural nodule - recommend outpatient CT. 12. History of CVA with right lower extremity weakness. DISCHARGE MEDICATIONS: 1. Ventolin 2.5 mg inhaled q.4 hours as needed for shortness of breath. 2. Eliquis 2.5 mg p.o. b.i.d. 3. Vitamin C 500 mg p.o. daily. 4. Vantin 200 mg p.o. q.12 hours x1 additional day. 5. Vitamin D3 1000 units p.o. daily. 6. Colchicine 0.6 mg p.o. b.i.d. 7. Vitamin B12 1000 mcg IM q.14 days. 8. Ferrous gluconate 325 mg p.o. b.i.d. 9. Fluticasone nasal spray 1 spray in both nostrils daily as needed for congestion. 10. Vicodin 5/325 mg 1 tablet p.o. q.4 hours as needed for pain. 11. Letrozole 2.5 mg p.o. daily. 12. Levothyroxine 25 mcg p.o. daily. 13. Imodium 2 mg p.o. q.4 hours as needed for diarrhea. 14. Magnesium oxide 400 mg p.o. daily. 15. Metoprolol tartrate 12.5 mg p.o. q.12 hours. 16. Senna 2 tablets p.o. b.i.d. as needed for constipation. 17. Keppra 500 mg p.o. b.i.d. HOSPITAL IMAGIN. Chest x-ray shows a pleural based nodule of the left lower lung, recommend further evaluation with contrasted CT of the chest but no acute process. Initial EKG shows atrial fibrillation with a QTc of 518 milliseconds. 2. Followup EKG, 10/14/16, shows a sinus rhythm with first degree block. EKG on day of discharge, 10/17/16, shows a sinus rhythm with first-degree block and QTc measured at 556 milliseconds. 3. Transthoracic echocardiogram, 10/13/16, shows septal wall hypertrophy, EF of 60% to 65%, mild mitral regurgitation, moderate tricuspid regurgitation, borderline pulmonary hypertension. No pericardial effusion, otherwise within normal limits. No wall motion changes. 4. Lexiscan, 10/16/16, is reported as low risk. There is a small fixed defect of the lateral wall, but normal ejection fraction and no wall motion changes. HOSPITAL COURSE: This is an 85-year-old female with ptdx-aw-oyperedd dementia as well as paroxysmal atrial fibrillation, seizure disorder, hypertension, hyperlipidemia, history of diastolic heart failure, prior breast cancer, who has a rather extensive recent history of frequent hospitalizations, who presented to our emergency department with complaints of nausea, vomiting and chest pressure, who subsequently had sustained V-tach converted with an amio bolus in the emergency department. In regards to patient's medical history, patient was admitted to [facility] on 08/06/16. She was treated for pneumonia at that time and was noted to have new atrial fibrillation. She was cardioverted during that hospital stay, started on Eliquis and amiodarone. On 08/18/16, she was discharged to rehab but unfortunately on the , she was sent back to [facility] with tachycardia and dyspnea, a fairly large pericardial effusion was appreciated on echo and patient was transferred to [facility] where she had a pericardial window placed by Dr. Casiano. This was complicated by collapse of the right lower lobe. Chest tube was placed and patient had a recurrent right-sided pleural effusion and patient was discharged with a PleurX catheter in place and sent to [facility] for rehab. The patient had been doing fairly well for several weeks at [facility] before she came to our emergency department with the above complaints. The patient was initially admitted to the ICU on an amiodarone drip. She converted to a sinus rhythm with a first degree block, noted to have a prolonged QTc; at its longest, it climbs to 596 milliseconds. She had no significant electrolyte abnormalities. Her medications were reviewed closely with our inpatient pharmacy, and the only potential offending medication was identified as amiodarone, which the patient had been on chronically at home. Her amiodarone drip was discontinued and she was not placed back on her oral amiodarone; instead, she was started on a low dose beta-humberto. QTc improved slightly, but still remains above 500. She has not had any episodes of ectopy in the last 48 hours and has been asymptomatic. The patient underwent ischemia workup, which included a Lexiscan. She had a small lateral wall defect that was fixed. No reversible changes or wall motion abnormalities. Of note, patient had urinary tract infection growing Klebsiella pneumoniae with a rather benign sensitivity pattern resistant only to ampicillin. The patient was treated with 4 days of ceftriaxone during her hospital stay and will be discharged with 1 additional day. It is unclear at this time why patient originally had the pericardial effusion, perhaps related to her recent pneumonia. No mention of pericarditis. CRP was normal at 3.87 and sed rate also normal at 16 during this hospital admission. The patient had no complaints of chest pain and again no further dysrhythmias appreciated. DISPOSITION: The patient is being discharged to [facility] in [place] which is closer to her family. She had sustained a prior CVA and has very little use of her right leg. She requires further rehab before she is able to return home. Her amiodarone has been discontinued. She was started on metoprolol as well as supplemental magnesium. She does require close followup with her primary care provider as well as her precision lens centerer and edger. She requires one additional day of antibiotics for her urinary tract infection as described above. The patient's PleurX catheter was discontinued during her hospital stay here. Contacted Dr. Casiano's nurse practitioner who stated that it could be removed if her drainage had been less than 30 mL on 3 occasions. Reviewed records from [facility], which indicated that she had met that criteria for the last couple of weeks. KAYLIN PEREZ CC: Dr. Broderick Holguin; Dr. Yuan* [id number]/[facility] #: [id number] [facility]
--- NOTE | 2016-11-03 20:15 | ED ---
Altagracia Swain Matthew, scribed for Tracey Haile MD on 10/13/16 at 1148 . HPI Chest Pain - HPI Summary HPI Summary: An 85 y/o female presents to the ED with chest pain since 09:00. Associated symptoms include vomiting. She denies abdominal pain. She denies PR and CABG. PMHx includes CVA. A complete HPI is unable to be obtained, because the patient has confusion. She is a LEVEL 5 CAVEAT. The patient is on Eliquis. She has a Hx of a pericardial window. Approximately 500mL of serous fluid was removed from the left chest . - History of Current Complaint Time Seen by Provider: 10/13/16 10:52 Hx Obtained From: Patient Hx From Patient Unobtainable Due To: Other - Confusion Onset/Duration: Started Hours Ago, Atraumatic, Still Present Associated Signs and Symptoms: Positive: Chest Pain, Vomiting. Negative: Abdominal Pain - Allergy/Home Medications Allergies/Adverse Reactions: Allergies Allergy/AdvReac Type Severity Reaction Status Date / Time No Known Drug Allergy Allergy Unknown Verified 01/01/14 00:17 Reaction Details Home Medications: Home Medications Albuterol 2.5MG/3ML (0.083%)* [Ventolin 2.5 MG/3 ML NEB.PACHECO*] 2.5 mg INH Q4H PRN 10/13/16 [History Confirmed 10/13/16] Apixaban* [Eliquis*] 2.5 mg PO BID 10/13/16 [History Confirmed 10/13/16] Ascorbic Acid TAB* [Vitamin C TAB*] 500 mg PO DAILY 10/13/16 [History Confirmed 10/13/16] Cholecalciferol [Vitamin D3] 1,000 unit PO DAILY 10/13/16 [History Confirmed ] Colchicine* [Colcrys*] 0.6 mg PO BID 10/13/16 [History Confirmed 10/13/16] Cyanocobalamin INJ * [Vitamin B12 INJ *] 1,000 mcg IM Q14D 10/13/16 [History Confirmed 10/13/16] Ferrous Gluconate TAB* [Fergon TAB*] 325 mg PO BID 10/13/16 [History Confirmed 10/13/16] Fluticasone NASAL SPRAY 50MCG* [Flonase NASAL SPRAY 50MCG*] 1 spray BOTH NARES DAILY PRN 10/13/16 [History Confirmed 10/13/16] HYDROcodone/ACETAMIN 5-325 MG* [[place] 5-325 TAB*] 1 tab PO Q4H PRN MDD 6 tabs [History Confirmed 10/13/16] Letrozole (NF) [Femara (NF)] 2.5 mg PO DAILY 10/13/16 [History Confirmed ] Levothyroxine TAB* [Synthroid 25 MCG TAB*] 25 mcg PO QAM 10/13/16 [History Confirmed 10/13/16] Loperamide CAP* [Imodium CAP*] 2 mg PO Q4H PRN 10/13/16 [History Confirmed 10/13] Sennosides-Docusate Sodium [Senna-S 8.6-50 mg] 2 tab PO BID PRN 10/13/16 [ History Confirmed 10/13/16] levETIRAcetam TAB* [Keppra TAB*] 500 mg PO BID 10/13/16 [History Confirmed 10/13] PMH/Surg Hx/FS Hx/Imm Hx Endocrine/Hematology History: Denies: Hx Diabetes Cardiovascular History: Reports: Hx Hypercholesterolemia, Hx Hypertension Denies: Hx Congestive Heart Failure, Hx Myocardial Infarction Musculoskeletal History: Reports: Hx Arthritis - bilateral knees Comment Only: Other Musculoskeletal History - bilateral knees Sensory History: Reports: Hx Contacts or Glasses Opthamlomology History: Reports: Hx Contacts or Glasses Neurological History: Reports: Hx CVA, Hx Seizures, Other Neuro Impairments/ Disorders - cva - Surgical History Surgery Procedure, Year, and Place: bilateral knees Infectious Disease History: Denies: Traveled Outside the [place] in Last 30 Days - Family History Known Family History: Positive: Unknown - The patient is a poor historian. - Social History Alcohol Use: None Substance Use Type: Reports: None Review of Systems Positive: Chest Pain Positive: Vomiting All Other Systems Reviewed And Are Negative: No - Comments Additional Review of Systems Comments: A complete ROS is unable to be obtained, because the patient is a LEVEL 5 CEVEAT. Physical Exam Triage Information Reviewed: Yes Vital Signs On Initial Exam: Temp Pulse Resp BP Pulse Ox 98.8 F 110 18 91/54 93 10/13/16 11:38 10/13/16 11:38 10/13/16 11:38 10/13/16 11:38 10/13/16 11:38 Vital Signs Reviewed: Yes Completion Of Physical Exam Limited Due To: Level 5 Appearance: Positive: Well-Appearing, No Pain Distress Skin: Positive: Warm, Skin Color Reflects Adequate Perfusion, Dry Eyes: Positive: EOMI, CHRIS ENT: Positive: Normal ENT inspection Neck: Positive: Supple, Nontender Respiratory/Lung Sounds: Positive: Breath Sounds Present, Other - Crackles at the bases bilaterally Cardiovascular: Positive: RRR. Negative: Murmur, Rub Abdomen Description: Positive: Nontender, Soft, Other: - RUQ bandage thats clear dry and intact. Bowel Sounds: Positive: Present Musculoskeletal: Positive: Normal, Strength/ROM Intact Neurological: Positive: Other - Wording finding problems; confusion Diagnostics - Vital Signs Vital Signs Temp Pulse Resp BP Pulse Ox 10/13/16 13:30 121/61 10/13/16 13:07 79 21 109/43 98 10/13/16 13:06 110 15 82/57 95 10/13/16 13:01 109 21 93/55 98 10/13/16 13:00 110 22 99 10/13/16 12:30 16 84/54 10/13/16 12:00 63 16 103/56 96 10/13/16 11:52 52 19 97/52 94 10/13/16 11:42 98.8 F 115 18 91/54 95 10/13/16 11:38 98.8 F 110 18 91/54 93 10/13/16 11:30 18 85/59 10/13/16 11:20 56 17 91/54 96 10/13/16 11:16 99 98 10/13/16 11:15 118/103 - Laboratory Lab Results: Lab Results 10/13/16 10/13/16 10/13/16 Range/Units 11:32 11:32 11:32 WBC 7.9 (3.5-10.8) 10^3/ul RBC 5.12 (4.0-5.4) 10^6/ul Hgb 14.2 (12.0-16.0) g/dl Hct 45 (35-47) % MCV 88 (80-97) fL MCH 28 (27-31) pg MCHC 32 (31-36) g/dl RDW 18 H (10.5-15) % Plt Count 265 (150-450) 10^3/ul MPV 10 (7.4-10.4) um3 Neut % (Auto) 77.4 (38-83) % Lymph % (Auto) 12.0 L (25-47) % [place] % (Auto) 6.7 (1-9) % Eos % (Auto) 3.0 (0-6) % Baso % (Auto) 0.9 (0-2) % Absolute Neuts (auto) 6.1 (1.5-7.7) 10^3/ul Absolute Lymphs (auto) 0.9 L (1.0-4.8) 10^3/ul Absolute Monos (auto) 0.5 (0-0.8) 10^3/ul Absolute Eos (auto) 0.2 (0-0.6) 10^3/ul Absolute Basos (auto) 0.1 (0-0.2) 10^3/ul Absolute Nucleated RBC 0 10^3/ul Nucleated RBC % 0 Sodium 137 (133-145) mmol/L Potassium 3.1 L (3.5-5.0) mmol/L Chloride 102 (101-111) mmol/L Carbon Dioxide 23 (22-32) mmol/L Anion Gap 12 H (2-11) mmol/L BUN 12 (6-24) mg/dL Creatinine 1.19 H (0.51-0.95) mg/dL Est GFR ( Amer) 55.3 (>60) Est GFR (Non-Af Amer) 43.0 (>60) BUN/Creatinine Ratio 10.1 (8-20) Glucose 167 H (70-100) mg/dL Lactic Acid 3.0 H* (0.5-2.0) mmol/L Calcium 9.6 (8.6-10.3) mg/dL Magnesium 1.8 L (1.9-2.7) mg/dL Total Bilirubin 0.50 (0.2-1.0) mg/dL AST 28 (13-39) U/L ALT 15 (7-52) U/L Alkaline Phosphatase 68 (34-104) U/L Troponin I 0.05 H* (<0.04) ng/mL Total Protein 7.2 (6.4-8.9) g/dL Albumin 3.4 (3.2-5.2) g/dL Globulin 3.8 (2-4) g/dL Albumin/Globulin Ratio 0.9 L (1-3) TSH 10.81 H (0.34-5.60) mcIU/mL Free T4 0.98 (0.61-1.12) ng/dL Thyroxine (T4) 10.89 (6.09-12.23) g/dL Free T3 3.40 (2.5-3.9) pg/mL Total T3 0.84 L (0.87-1.78) ng/mL Result Diagrams: 10/14/16 03:25 10/17/16 04:54 Lab Statement: Any lab studies that have been ordered have been reviewed, and results considered in the medical decision making process. - Radiology CXR Xray Interpretation: Positive (See Comments) - IMPRESSION: PLEURAL-BASED NODULE OF THE LEFT LOWER LUNG. RECOMMEND FURTHER EVALUATION WITH CONTRAST-ENHANCED CT OF THE CHEST Radiology Interpretation Completed By: Radiologist - EKG 10:46 Cardiac Rate: Tachycardia - 117 bpm EKG Rhythm: Sinus Tachycardia Ectopy: PVCs EKG Interpretation: New incomplete LBBB Chest Pain Course/Dx - Diagnoses Provider Diagnoses: V-tach - Provider Notifications Discussed Care Of Patient With: Dr. Juarez (Hospitalist) at 12:06 -- Notified of patient's history and will admit the patient. Recommends echocardiogram Discharge - Discharge Plan Condition: Stable Disposition: ADMITTED TO [facility] The documentation as recorded by the Altagracia ceja Matthew accurately reflects the service I personally performed and the decisions made by me, Tracey Haile MD.
== END 2016-10-17 15:25 | DRG 309 ==
LOC: ED 10:40 → ICU 13:41 → MEDTELE 10-14 13:30
PROVIDERS: ADMIT Hospitalist; ATTEND Internal Medicine
PROC: 0WP9X0Z Removal of Drainage Device from Right Pleural Cavity, External Approach (ICD-10-PCS; principal; 2016-10-16)
DX: I47.2 Ventricular tachycardia (principal); I31.3 Pericardial effusion (noninflammatory); I11.0 Hypertensive heart disease with heart failure; I95.9 Hypotension, unspecified; F03.90 Unspecified dementia, unspecified severity, without behavioral disturbance, psychotic disturbance, mood disturbance, and anxiety; I50.32 Chronic diastolic (congestive) heart failure; E83.42 Hypomagnesemia; I27.2 Other secondary pulmonary hypertension; N39.0 Urinary tract infection, site not specified; E78.5 Hyperlipidemia, unspecified; R09.02 Hypoxemia; R07.89 Other chest pain; R79.89 Other specified abnormal findings of blood chemistry; I45.81 Long QT syndrome; R19.7 Diarrhea, unspecified; G40.909 Epilepsy, unspecified, not intractable, without status epilepticus; Z66 Do not resuscitate; D64.9 Anemia, unspecified; R11.0 Nausea; R91.1 Solitary pulmonary nodule; E87.6 Hypokalemia; R94.6 Abnormal results of thyroid function studies; I48.0 Paroxysmal atrial fibrillation; E03.9 Hypothyroidism, unspecified; R53.1 Weakness; I44.0 Atrioventricular block, first degree; I08.1 Rheumatic disorders of both mitral and tricuspid valves; B96.1 Klebsiella pneumoniae [K. pneumoniae] as the cause of diseases classified elsewhere; T46.2X5A Adverse effect of other antidysrhythmic drugs, initial encounter; Z85.3 Personal history of malignant neoplasm of breast; Z90.710 Acquired absence of both cervix and uterus; Z82.49 Family history of ischemic heart disease and other diseases of the circulatory system; Z83.6 Family history of other diseases of the respiratory system; I69.398 Other sequelae of cerebral infarction; Z79.01 Long term (current) use of anticoagulants
CPT/HCPCS: 36415; 71010; 78452; 80048; 80053; 81003; 81015; 83605; 83735; 84436; 84439; 84443; 84479; 84481; 84484; 85025; 85652; 86140; 87040; 87045; 87046; 87077; 87086; 87186; 87425; 87449; 87493; 87502; 87641; 87899; 93005; 93017; 93306; 94760; A9270-GY; A9502; J0282; J0696; J2270; J2785; J3475; J3480